=== PATIENT | female | born 2000 | race Caucasian/White ===

== ENCOUNTER 2018-01-11 07:57 | Day surgery (SDC) | payer OTHER ==
[~2018-01-11] VITALS: Ht 165.1 cm; Wt 95.9 kg
[~2018-01-11 07:57] MED LIST: CYCL10 PO; IBUP800 PO
== END 2018-01-11 12:00 | disposition home or self-care (01) ==
LOC: ORSCSDS 07:57
PROVIDERS: Podiatrist Foot & Ankle Surgery
PROC: 0L8N0ZZ Division of Right Lower Leg Tendon, Open Approach (ICD-10-PCS; principal; 2018-01-11 09:30)
DX: M24.571 Contracture, right ankle (principal); E66.9 Obesity, unspecified; Z68.35 Body mass index [BMI] 35.0-35.9, adult; F17.210 Nicotine dependence, cigarettes, uncomplicated
CPT/HCPCS: J0171; J2250; J2405; J3010; J7120

== ENCOUNTER 2018-01-22 22:39 | Emergency (ER) | payer OTHER ==
[~2018-01-22] VITALS: Ht 165.1 cm; Wt 81.7 kg
== END 2018-01-23 00:30 | disposition left against medical advice (07) ==
LOC: ER 22:39
DX: Z53.21 Procedure and treatment not carried out due to patient leaving prior to being seen by health care provider (principal)